=== PATIENT | male | born 1935 | race Caucasian/White ===

== ENCOUNTER 2021-05-08 16:38 | Inpatient (IN) | payer BC ==
[~2021-05-08] VITALS: Ht 177.8 cm; Wt 94.8 kg
--- NOTE | 2021-05-08 16:45 | NUR ---
BIB RA 38 FROM HOME C/O GENERALIZED WEAKNESS X3 DAYS, BS 194, PT DAUGHTER STATED THAT HE COMPLAINS OF CHEST AND ABDOMINAL PAIN AND NUMBNESS IN HIS R ARM. VITALS ARE WITHIN NORMAL LIMITS. PT ATTCHED TO MONITOR AND GIVEN WARM BLANKET FOR COMFORT. BREATHING IS EVEN AND UNLABORED ON ROOM AIR.
[2021-05-08] MEDS ORDERED: INSU100I26 SQ (17:35)
[2021-05-08] MEDS ORDERED: FINA5TAB11 PO (17:35)
[2021-05-08] MEDS ORDERED: BUME2TAB7 PO (17:35)
[2021-05-08] MEDS ORDERED: ASPI-1420 PO (17:35)
[2021-05-08] MEDS ORDERED: TAMS-12 PO (17:35)
[2021-05-08] MEDS ORDERED: SODI15OR6 PO (17:35)
[2021-05-08] MEDS ORDERED: SACU1TAB7 PO (17:35)
[2021-05-08] MEDS ORDERED: CARV3.122 PO (17:35)
[2021-05-08] MEDS ORDERED: ATOR40TA PO (17:35)
[2021-05-08] MEDS ORDERED: NITR0.4T48 SL (17:35)
--- NOTE | 2021-05-08 17:35 | NUR ---
AT BEDSIDE FOR EVAL.
--- NOTE | 2021-05-08 17:39 | NUR ---
IV LINE ESTABLISHED BLOOD DRAWN AND SENT TO LAB.
--- NOTE | 2021-05-08 17:58 | NUR ---
UNABLE TO PROVIDE URINE AT THIS TIME, URINAL PROVIDED AT BEDSIDE.
--- NOTE | 2021-05-08 17:58 | NUR ---
PT TAKEN TO CT VIA [facility]
[2021-05-08 18:22] LABS: BASOPHILS % (AUTO) 0.2 % (0.0-2.0); EOSINOPHILS % (AUTO) 0.9 % (0.0-6.0); HEMATOCRIT 37 % (39-51); HEMOGLOBIN 12.5 g/dL (13.5-17.5); LYMPHOCYTES # (AUTO) 1.2 K/uL (0.8-4.8); LYMPHOCYTES % (AUTO) 12.7 % (20.0-44.0); MEAN CORPUSCULAR HGB CONC 33 g/dl (31.0-36.0); MEAN CORPUSCULAR VOLUME 93 fL (80-96); MONOCYTES # (AUTO) 1.1 K/uL (0.1-1.30); NEUTROPHILS # (AUTO) 7.4 K/uL (1.8-8.9); NEUTROPHILS % (AUTO) 75.2 % (43.0-81.0); PLATELET COUNT (AUTO) 103 K/uL (150-450); RED BLOOD CELL COUNT(AUTO) 4.03 MIL/uL (4.5-6.0); WHITE BLOOD COUNT (AUTO) 9.8 K/uL (4.3-11.0)
[2021-05-08 18:33] LABS: LYMPHOCYTES % (MANUAL) 12 % (16-48); MONOCYTES % (MANUAL) 6 % (0-11.0); NEUTROPHILS % (MANUAL) 82 (42-76)
--- NOTE | 2021-05-08 18:38 | NUR ---
COVID TEST COLLECTED AND SENT
[2021-05-08 18:46] LABS: CALCIUM, SERUM 8.5 mg/dL (8.5-10.1); CARBON DIOXIDE 23 mmol/L (21-32); CHLORIDE 95 mmol/L (98-107); CREATININE 1.7 mg/dL (0.6-1.3); GLUCOSE 156 mg/dL (74-106); POTASSIUM 4.1 mmol/L (3.5-5.1); SODIUM SERUM 128 mmol/L (136-145); UREA NITROGEN, BLOOD 37 mg/dL (7-18)
--- NOTE | 2021-05-08 18:53 | NUR ---
ULTRASOUND AT BEDSIDE
[2021-05-08 18:59] LABS: ALANINE AMINOTRANSFERASE 23 U/L (12-78); ALBUMIN 2.5 g/dL (3.4-5.0); ALKALINE PHOSPHATASE 140 U/L (46-116); ASPARTATE AMINOTRANSFERASE 48 U/L (15-37); BILIRUBIN,DIRECT 2.4 mg/dL (0.0-0.2); BILIRUBIN,TOTAL 4.9 mg/dL (0.2-1.0); LIPASE 78 U/L (73-393); TOTAL PROTEIN, SERUM 6.8 g/dL (6.4-8.2)
[2021-05-08] MEDS ORDERED: ASPIRIN 81 MG TAB.CHEW ONE ×2 (19:29→23:44)
[2021-05-08] MEDS ORDERED: IV NS 0.9% 1,000 ML BAG IV ONE (19:30)
[2021-05-08] MEDS ORDERED: ASPIRIN 81 MG TAB.CHEW PO ONE (19:30)
--- NOTE | 2021-05-08 19:30 | NUR ---
urine collected and sent
--- NOTE | 2021-05-08 19:42 | NUR ---
OMID (DAUGHTER) [phone] WAITING IN WAITING ROOM
[2021-05-08 20:06] LABS: BILIRUBIN,URINE NEGATIVE (NEGATIVE); COLOR,URINE YELLOW (YELLOW); LEUKOCYTE ESTERASE ,URINE NEGATIVE (NEGATIVE); NITRITE, URINE NEGATIVE (NEGATIVE); PH,URINE 5.5 (5.0-8.0); PROTEIN,URINE TRACE mg/dl (NEGATIVE); UGLUCOSE NEGATIVE (NEGATIVE)
[2021-05-08 20:16] LABS: BACTERIA,URINE None seen /HPF (None Seen); WBC,URINE 0-2 /HPF (0-3)
[2021-05-08] MEDS ORDERED: ACETAMINOPHEN 325 MG TABLET PO PRN (20:30)
[2021-05-08] MEDS ORDERED: Z GUARD REMEDY 4 OZ OINT TP PRN (20:30)
[2021-05-08] MEDS ORDERED: ONDANSETRON HCL/PF 4 MG/2 ML VIAL IVP PRN (20:30)
[2021-05-08] MEDS ORDERED: NITROGLYCERIN 0.4 MG/TAB BOTTLE SL PRN (20:30)
[2021-05-08] MEDS ORDERED: MAG HYDROX/AL HYDROX/SIMETH 30 ML UDC PO PRN (20:30)
[2021-05-08] MEDS ORDERED: MAGNESIUM HYDROXIDE 30 ML UDC PO PRN (20:30)
--- NOTE | 2021-05-08 21:10 | NUR ---
DR ROSS ON THE PHONE WITH DR GREGORY FROM [facility]
--- NOTE | 2021-05-08 21:17 | NUR ---
ACCORDING TO DR ROSS, DR GREGORY APPROVED PT'S STAY AT [facility]
--- NOTE | 2021-05-08 21:20 | NUR ---
NEGATIVE DVT 15-20% PER RADIOLOGIST
[2021-05-08] MEDS: ASPIRIN EC 81 MG TABLET.DR PO SCH (23:00)
[2021-05-08] MEDS: ENOXAPARIN SODIUM 40 MG/0.4 ML DISP.SYRIN SQ SCH (23:00)
[2021-05-08] MEDS: ATORVASTATIN 40 MG TABLET PO SCH (23:00)
[2021-05-08] MEDS ORDERED: ATORVASTATIN 40 MG TABLET ONE (23:29)
[2021-05-08] MEDS: BLOOD SUGAR DIAGNOSTIC 1 EACH STRIP IN SCH ×2 (23:30)
[2021-05-08] MEDS ORDERED: ENOXAPARIN SODIUM 40 MG/0.4 ML DISP.SYRIN SQ ONE (23:40)
--- NOTE | 2021-05-09 04:44 | NUR ---
bed assignment: 327-1 after shift change
[2021-05-09 04:45] LABS: BASOPHILS % (AUTO) 0.4 % (0.0-2.0); EOSINOPHILS % (AUTO) 1.9 % (0.0-6.0); HEMATOCRIT 35 % (39-51); HEMOGLOBIN 11.8 g/dL (13.5-17.5); LYMPHOCYTES # (AUTO) 1.2 K/uL (0.8-4.8); LYMPHOCYTES % (AUTO) 15.5 % (20.0-44.0); MEAN CORPUSCULAR HGB CONC 34 g/dl (31.0-36.0); MEAN CORPUSCULAR VOLUME 91 fL (80-96); MONOCYTES # (AUTO) 0.9 K/uL (0.1-1.30); MONOCYTES % (AUTO) 12.7 % (2.0-12.0); NEUTROPHILS # (AUTO) 5.2 K/uL (1.8-8.9); NEUTROPHILS % (AUTO) 69.5 % (43.0-81.0); PLATELET COUNT (AUTO) 99 K/uL (150-450); RED BLOOD CELL COUNT(AUTO) 3.84 MIL/uL (4.5-6.0); WHITE BLOOD COUNT (AUTO) 7.5 K/uL (4.3-11.0)
[2021-05-09 05:04] LABS: CALCIUM, SERUM 8.1 mg/dL (8.5-10.1); CARBON DIOXIDE 25 mmol/L (21-32); CHLORIDE 99 mmol/L (98-107); CREATININE 1.6 mg/dL (0.6-1.3); GLUCOSE 100 mg/dL (74-106); MAGNESIUM 2.6 mg/dL (1.8-2.4); PHOSPHORUS 3.5 mg/dL (2.5-4.9); POTASSIUM 3.5 mmol/L (3.5-5.1); SODIUM SERUM 132 mmol/L (136-145); UREA NITROGEN, BLOOD 37 mg/dL (7-18)
[2021-05-09] MEDS: BLOOD SUGAR DIAGNOSTIC 1 EACH STRIP IN SCH ×6 (06:08→22:08)
--- NOTE | 2021-05-09 07:28 | NUR ---
REPORT GIVEN TO TANI BURNS FOR SAV
[2021-05-09] MEDS ORDERED: PANTOPRAZOLE 40 MG TABLET.DR PO ONE (07:56)
[2021-05-09 08:00] VITALS: BP 124/74
[2021-05-09] MEDS: PANTOPRAZOLE 40 MG TABLET.DR PO SCH (08:00)
[2021-05-09] MEDS: FINASTERIDE (5 MG) 5 MG TABLET PO SCH (09:00)
[2021-05-09] MEDS: CARVEDILOL 3.125 MG TABLET PO SCH ×2 (09:00→17:03)
[2021-05-09] MEDS: ASPIRIN EC 81 MG TABLET.DR PO SCH (09:00)
--- NOTE | 2021-05-09 09:00 | NUR ---
SHIP ENGINEER ADMISSION NOTE RECEIVED PATIENT VIA GURNEY. PATIENT ABLE TO AMBULATE WITH ASSISTANCE SAFELY TO BED X2 ASSIST. PATIENT IS A/O X4. PATIENT IS BREATHING EVENLY AND NONLABORED ON ROOM AIR. NO SIGNS OF DISTRESS, SOB NOTED. PATIENT PLACED ON TELE MONITOR SHOWS AFIB. VITALS BP 124/74, HR 80, RR 18, O2 SAT 100% AND TEMP 97.7. PATIENT HAS IV ACCESS TO R WRIST # 20GAUGE PATENT AND INTACT. PATIENTS SKIN C/D/I. PATIENTS ABDOMEN SOFT NONTENDER. PATIENT WAS ORIENTED TO THE ROOM AND HOW TO USE THE CALL LIGHT. ALL BELONGINGS ACCOUNTED FOR. SAFETY MEASURES IN PLACE BED ALARM ON BED LOW LOCKED AND CALL LIGHT WITHIN REACH. WILL CONTINUE TO MONITOR
[2021-05-09] MEDS: INSULIN REGULAR, HUMAN 100 UNIT/ML 3 ML VIAL SQ PRN ×2 (11:53→16:52)
[2021-05-09 12:00] VITALS: BP 125/70
[2021-05-09] MEDS ORDERED: DEXTROSE 50%-WATER 50 ML DISP.SYRIN IV PRN (12:00)
[2021-05-09] MEDS: IV NS 0.9% 1,000 ML IV PRN (12:13)
[2021-05-09 13:13] LABS: EOSINOPHILS % (MANUAL) 1 % (0-4); LYMPHOCYTES % (MANUAL) 18 % (16-48); MONOCYTES % (MANUAL) 7 % (0-11.0); NEUTROPHILS % (MANUAL) 74 (42-76)
--- NOTE | 2021-05-09 14:38 | NUR ---
RN NOTE SS EVALUATED PATIENT, STROKE DEPRESSION SCORE >5, SS ASKED TO ORDER PSYCH CONSULT.
--- NOTE | 2021-05-09 14:45 | NUR ---
SS Consult: SS Consult requested for rule out stroke. The pt. is a 85 year old male who is Fijian speaking mostly some Citizen Of [place]. The pt. is alert & oriented x 2. The pt.'s mood is depressed with flat affect. The pt. states he lives at home [[address] [facility] [address]; [phone]] with , Jennifer. The pt. stated his daughter, Corine Woody [phone] is his support system. Per pr. he ambulates with front wheel walker and his Jennifer helps him with some ADL's. Pt. denies SI/HI and denies hallucinations. Pt. stated he would like to return home when ready for discharge. ANGEL completed post stroke depressions scale with pt. and he scored a 6. ANGEL spoke with pt.'s nurse and ordered Psych consult. ANGEL placed Post Stroke Empowerment educational material in pt.'s chart. Paperwork to be give to pt./ family if it is determined that pt. has a Stroke. SS will be available as needed.
[2021-05-09 16:08] VITALS: BP 135/72
[2021-05-09] MEDS: ATORVASTATIN 40 MG TABLET PO SCH (17:03)
[2021-05-09] MEDS: INSULIN GLARGINE, 100 UNIT/ML CARTRIDGE SQ SCH (17:03)
[2021-05-09] MEDS: TAMSULOSIN 0.4 MG CAP.SR.24H PO SCH (17:03)
--- NOTE | 2021-05-09 18:21 | NUR ---
DOWELING MACHINE OPERATOR CLOSING NOTE PATIENT RESTING IN BED. PATIENT IS A/O X4. PATIENT IS BREATHING EVENLY AND NONLABORED ON ROOM AIR. NO SIGNS OF DISTRESS, SOB NOTED. PATIENT PLACED ON TELE MONITOR SHOWS AFIB. . PATIENT HAS IV ACCESS TO R WRIST # 20GAUGE PATENT AND INTACT RUNNING NS @ 60 ML/HR. PATIENTS SKIN C/D/I. ALL MEDICATIONS GIVEN ORDERED. SAFETY MEASURES IN PLACE BED ALARM ON BED LOW LOCKED AND CALL LIGHT WITHIN REACH. WILL ENDORSE TO ONCOMING SHIFT
[2021-05-09 18:27] LABS: ALANINE AMINOTRANSFERASE 23 U/L (12-78); ALBUMIN 2.6 g/dL (3.4-5.0); ALKALINE PHOSPHATASE 162 U/L (46-116); ASPARTATE AMINOTRANSFERASE 37 U/L (15-37); BILIRUBIN,DIRECT 3.1 mg/dL (0.0-0.2); BILIRUBIN,TOTAL 4.6 mg/dL (0.2-1.0); CALCIUM, SERUM 8.1 mg/dL (8.5-10.1); CARBON DIOXIDE 28 mmol/L (21-32); CHLORIDE 99 mmol/L (98-107); CREATININE 1.6 mg/dL (0.6-1.3); GLUCOSE 142 mg/dL (74-106); POTASSIUM 3.9 mmol/L (3.5-5.1); SODIUM SERUM 133 mmol/L (136-145); TOTAL PROTEIN, SERUM 6.9 g/dL (6.4-8.2); UREA NITROGEN, BLOOD 39 mg/dL (7-18)
--- NOTE | 2021-05-09 19:40 | NUR ---
MS/RN OPENING NOTE RECEIVED PATIENT RESTING IN BED. AWAKE, ALERT AND ORIENTED X 4. PRIMARILY MALAY SPEAKING. ABLE TO MAKE NEEDS KNOWN. DENIES PAIN AT THIS TIME. CONTINUES ON ROOM AIR WITH NO S/SX OF RESPIRATORY DISTRESS NOTED. IV ACCESS TO RIGHT WRIST #20G INTACT AND PATENT. CONTINUES ON IVF NS @ 60ML/HR. PATIENT TO BE NPO AFTER MIDNIGHT FOR HIDA SCAN IN AM. PATIENT AWARE AND AGREEABLE. CONSENT IN CHART. CALL LIGHT WITHIN REACH. ASPIRATION, FALL AND SAFETY PRECAUTIONS MAINTAINED. WILL CONTINUE TO MONITOR.
[2021-05-09] MEDS ORDERED: SODIUM POLYSTYRENE SULFONATE 15 G/60 ML BOTTLE PO SCH (20:30)
[2021-05-09 21:06] VITALS: BP 141/75
[2021-05-09] MEDS: ENOXAPARIN SODIUM 40 MG/0.4 ML DISP.SYRIN SQ SCH (21:52)
[2021-05-10] MEDS: IV NS 0.9% 1,000 ML IV PRN (02:38)
--- NOTE | 2021-05-10 06:10 | NUR ---
FIELD CROP FARMING SUPERVISOR NOTIFIED VIA TEXT IN REGARDS TO [facility].
--- NOTE | 2021-05-10 06:40 | NUR ---
MS/RN CLOSING NOTE PATIENT CURRENTLY RESTING IN BED. AWAKE, ALERT AND ORIENTED X 4. PRIMARILY PASHTO SPEAKING. ABLE TO MAKE NEEDS KNOWN. DENIES PAIN AT THIS TIME. CONTINUES ON ROOM AIR WITH NO S/SX OF RESPIRATORY DISTRESS NOTED. IV ACCESS TO RIGHT WRIST #20G INTACT AND PATENT. CONTINUES ON IVF NS @ 60ML/HR. PATIENT IS NPO FOR HIDA SCAN IN AM. CONSENT IN CHART. CALL LIGHT WITHIN REACH. ASPIRATION, FALL AND SAFETY PRECAUTIONS MAINTAINED. WILL ENDORSE PLAN OF CARE TO ONCOMING SHIFT.
[2021-05-10] MEDS: BLOOD SUGAR DIAGNOSTIC 1 EACH STRIP IN SCH ×4 (07:32→21:13)
[2021-05-10 07:55] LABS: BASOPHILS % (AUTO) 0.3 % (0.0-2.0); EOSINOPHILS % (AUTO) 4.6 % (0.0-6.0); HEMATOCRIT 37 % (39-51); HEMOGLOBIN 12.4 g/dL (13.5-17.5); LYMPHOCYTES # (AUTO) 1.1 K/uL (0.8-4.8); LYMPHOCYTES % (AUTO) 18.9 % (20.0-44.0); MEAN CORPUSCULAR HGB CONC 34 g/dl (31.0-36.0); MEAN CORPUSCULAR VOLUME 92 fL (80-96); MONOCYTES # (AUTO) 0.8 K/uL (0.1-1.30); MONOCYTES % (AUTO) 13.4 % (2.0-12.0); NEUTROPHILS # (AUTO) 3.6 K/uL (1.8-8.9); NEUTROPHILS % (AUTO) 62.8 % (43.0-81.0); PLATELET COUNT (AUTO) 113 K/uL (150-450); RED BLOOD CELL COUNT(AUTO) 4.02 MIL/uL (4.5-6.0); WHITE BLOOD COUNT (AUTO) 5.7 K/uL (4.3-11.0)
[2021-05-10 08:00] VITALS: BP 144/87
[2021-05-10 08:02] LABS: CALCIUM, SERUM 8.2 mg/dL (8.5-10.1); CREATININE 1.3 mg/dL (0.6-1.3); PHOSPHORUS 3.3 mg/dL (2.5-4.9); POTASSIUM 3.6 mmol/L (3.5-5.1)
--- NOTE | 2021-05-10 08:07 | NUR ---
MS/RN OPENING NOTE RECEIVED PATIENT RESTING IN BED. AWAKE, ALERT AND ORIENTED X 4. PRIMARILY BULGARIAN SPEAKING. ABLE TO MAKE NEEDS KNOWN. DENIES PAIN AT THIS TIME. CONTINUES ON ROOM AIR WITH NO S/SX OF RESPIRATORY DISTRESS NOTED. IV ACCESS TO RIGHT WRIST #20G INTACT AND PATENT WITH A RUNNING NS @60ML/HR. CONTINUES ON IVF NS @ 60ML/HR. PATIENT IS NPO FOR HIDA SCAN THIS MORNING. ALL CONSENTS SIGNED IN CHART. CALL LIGHT WITHIN REACH. ASPIRATION, FALL AND SAFETY PRECAUTIONS MAINTAINED. WILL CONTINUE TO MONITOR.
[2021-05-10] MEDS: FINASTERIDE (5 MG) 5 MG TABLET PO SCH (08:45)
[2021-05-10] MEDS: CARVEDILOL 3.125 MG TABLET PO SCH ×2 (08:45→17:04)
[2021-05-10] MEDS: ASPIRIN EC 81 MG TABLET.DR PO SCH (08:45)
[2021-05-10] MEDS: PANTOPRAZOLE 40 MG TABLET.DR PO SCH (08:45)
[2021-05-10 09:53] LABS: ALBUMIN 2.4 g/dL (3.4-5.0); BILIRUBIN,DIRECT 2.6 mg/dL (0.0-0.2); BILIRUBIN,TOTAL 4.3 mg/dL (0.2-1.0); TOTAL PROTEIN, SERUM 6.5 g/dL (6.4-8.2)
--- NOTE | 2021-05-10 11:45 | NUR ---
NM: JORGEA SCAN WAS COMPLETED: TECH:RB
[2021-05-10 16:00] VITALS: BP 130/71
[2021-05-10] MEDS: ATORVASTATIN 40 MG TABLET PO SCH (17:04)
[2021-05-10] MEDS: TAMSULOSIN 0.4 MG CAP.SR.24H PO SCH (17:04)
--- NOTE | 2021-05-10 18:30 | NUR ---
MS/RN NOTES- REFUSED INSULIN COVERAGE BS IS 200, 3 UNITS INSULIN REFUSED BY THE PATIENT. WILL MONITOR.
--- NOTE | 2021-05-10 19:35 | NUR ---
RN NOTES RECEIVED PATIENT SLEEPING BUT AROUSABLE, A/OX3, MACEDONIAN SPEAKING, DENIES PAIN, NO SOB, CALL LIGHT WITHIN REACH, [id number], WILL CONTINUE TO MONITOR
[2021-05-10] MEDS: BUMETANIDE (1 MG) 1 MG TABLET PO SCH (19:37)
[2021-05-10 20:00] VITALS: BP 119/62
[2021-05-10] MEDS: INSULIN GLARGINE, 100 UNIT/ML CARTRIDGE SQ SCH (20:03)
[2021-05-10] MEDS: ENOXAPARIN SODIUM 40 MG/0.4 ML DISP.SYRIN SQ SCH (20:58)
[2021-05-10] MEDS: INSULIN REGULAR, HUMAN 100 UNIT/ML 3 ML VIAL SQ PRN (21:12)
[2021-05-11] MEDS: BLOOD SUGAR DIAGNOSTIC 1 EACH STRIP IN SCH ×4 (06:42→22:20)
--- NOTE | 2021-05-11 07:28 | NUR ---
MS RN OPENING NOTES RECEIVED PATIENT AWAKE IN BED IN NO ACUTE SIGNS OF DISTRESS. ALERT AND ORIENTED X 4. PRIMARILY CYMRAES SPEAKING. ABLE TO MAKE NEEDS KNOWN, DENIES PAIN OR ANY DISCOMFORTS AT THIS TIME. ON ROOM AIR, BREATHING EVEN AND UNLABORED. IV ACCESS TO RIGHT WRIST #20G INTACT, PATENT AND SALINE LOCKED ONLY. SAFETY MEASURES IN PLACED: BED IN LOWEST LOCKED POSITION WITH SR-UP X2, CALL LIGHT WITHIN REACH. WILL CONTINUE TO MONITOR PT ACCORDINGLY.
[2021-05-11 08:00] VITALS: BP 128/65
[2021-05-11] MEDS: ASPIRIN EC 81 MG TABLET.DR PO SCH (08:17)
[2021-05-11] MEDS: FINASTERIDE (5 MG) 5 MG TABLET PO SCH (08:17)
[2021-05-11] MEDS: CARVEDILOL 3.125 MG TABLET PO SCH ×2 (08:18→17:00)
[2021-05-11] MEDS: PANTOPRAZOLE 40 MG TABLET.DR PO SCH (08:18)
[2021-05-11] MEDS: BUMETANIDE (1 MG) 1 MG TABLET PO SCH ×2 (08:19→17:09)
[2021-05-11 08:23] LABS: BASOPHILS % (AUTO) 0.3 % (0.0-2.0); EOSINOPHILS % (AUTO) 4.5 % (0.0-6.0); HEMATOCRIT 37 % (39-51); HEMOGLOBIN 12.2 g/dL (13.5-17.5); LYMPHOCYTES # (AUTO) 1.1 K/uL (0.8-4.8); LYMPHOCYTES % (AUTO) 20.2 % (20.0-44.0); MEAN CORPUSCULAR HGB CONC 33 g/dl (31.0-36.0); MEAN CORPUSCULAR VOLUME 92 fL (80-96); MONOCYTES # (AUTO) 0.8 K/uL (0.1-1.30); MONOCYTES % (AUTO) 15.9 % (2.0-12.0); NEUTROPHILS # (AUTO) 3.1 K/uL (1.8-8.9); NEUTROPHILS % (AUTO) 59.1 % (43.0-81.0); PLATELET COUNT (AUTO) 127 K/uL (150-450); RED BLOOD CELL COUNT(AUTO) 3.98 MIL/uL (4.5-6.0); WHITE BLOOD COUNT (AUTO) 5.3 K/uL (4.3-11.0)
[2021-05-11 08:42] LABS: ALBUMIN 2.5 g/dL (3.4-5.0); BILIRUBIN,TOTAL 3.1 mg/dL (0.2-1.0); CALCIUM, SERUM 7.8 mg/dL (8.5-10.1); CREATININE 1.3 mg/dL (0.6-1.3); MAGNESIUM 2.7 mg/dL (1.8-2.4); PHOSPHORUS 2.8 mg/dL (2.5-4.9); TOTAL PROTEIN, SERUM 6.2 g/dL (6.4-8.2)
--- NOTE | 2021-05-11 11:08 | NUR ---
RN NOTES VEGETABLE SORTER STATED THAT SHE CAN'T DO MRCP BECAUSE PT HAS PACEMAKER ON LCW. HERLINDA SILVA ON UNIT AND MADE AWARE.
[2021-05-11] MEDS: INSULIN REGULAR, HUMAN 100 UNIT/ML 3 ML VIAL SQ PRN ×3 (11:39→21:04)
[2021-05-11 13:01] LABS: BAND % (MANUAL) 2 % (0.0-5.0); BASOPHILS % (MANUAL) 0 % (0.0-2.0); BLASTS, MANUAL % 0 % (0-0); EOSINOPHILS % (MANUAL) 2 % (0-4); LYMPHOCYTES % (MANUAL) 26 % (16-48); METAMYELOCYTES % 0 % (0-0); MONOCYTES % (MANUAL) 4 % (0-11.0); MYELOCYTES % 0 % (0-0); NEUTROPHILS % (MANUAL) 66 (42-76); PROMYELOCYTES % 0 % (0-0); REACTIVE LYMPHOCYTES 0 % (0-0)
[2021-05-11 16:00] VITALS: BP 122/54
[2021-05-11] MEDS: TAMSULOSIN 0.4 MG CAP.SR.24H PO SCH (17:09)
[2021-05-11] MEDS: ATORVASTATIN 40 MG TABLET PO SCH (17:09)
[2021-05-11] MEDS: INSULIN GLARGINE, 100 UNIT/ML CARTRIDGE SQ SCH (17:14)
--- NOTE | 2021-05-11 18:40 | NUR ---
MS RN CLOSING NOTES PATIENT IN BED AWAKE AND RESTING AT MODERATE HIGH BACKREST POSITION. A/0 X 4. COMORAN SPEAKING, UNDERSTANDS MINIMAL URUGUAYAN. ON ROOM AIR, BREATHING EVEN AND UNLABORED. IV SALINE LOCKED ON RIGHT WRIST #20G INTACT, PATENT AND FLUSHES WELL. ALL NEEDS AND CARE ATTENDED WELL. SAFETY MEASURES IN PLACED: BED LOCKED AND IN LOWEST POSITION, SIDE-RAILS UP X2, CALL LIGHT AND TRAY TABLE WITHIN EASY REACH OF PT. WILL ENDORSE SAV TO CAUSTIC OPERATOR NURSE.
--- NOTE | 2021-05-11 19:30 | NUR ---
RN NOTES RECEIVED PATIENT AWAKE ON HIS BED, A/OX3, ITALIAN SPEAKING, DENIES PAIN, NO SOB, CALL LIGHT WITHIN REACH, [id number], WILL CONTINUE TO MONITOR
[2021-05-11 20:00] VITALS: BP 132/69
[2021-05-11] MEDS: ENOXAPARIN SODIUM 40 MG/0.4 ML DISP.SYRIN SQ SCH (20:57)
--- NOTE | 2021-05-12 06:00 | NUR ---
RN NOTES BLOOD SUGAR-58, PATIENT REFUSED D50 , PATIENT DRINKS JUICE AND JELLO, WILL MONITOR
--- NOTE | 2021-05-12 06:46 | NUR ---
RN NOTES RE-CHECKED PATIENT BLOOD SUGAR-110, MORNING CARE RENDERED, CALL LIGHT WITHIN REACH, [id number], PT. NEEDS ATTENDED
--- NOTE | 2021-05-12 07:20 | NUR ---
ms rn received on bed, awake,alert,oriented x3-4,not in any form of distress, respirations even and unlabored,no sob noted, lungs are clear,abdomen soft,positive bowel sounds,denies pain a this time,all needs attended.
[2021-05-12] MEDS: BLOOD SUGAR DIAGNOSTIC 1 EACH STRIP IN SCH ×2 (07:30→12:23)
[2021-05-12 08:00] VITALS: BP 131/72
--- NOTE | 2021-05-12 08:30 | NUR ---
ms barron breakfast served,due meds given,tolerated well.
[2021-05-12] MEDS: BUMETANIDE (1 MG) 1 MG TABLET PO SCH (08:32)
[2021-05-12] MEDS: FINASTERIDE (5 MG) 5 MG TABLET PO SCH (08:32)
[2021-05-12] MEDS: ASPIRIN EC 81 MG TABLET.DR PO SCH (08:32)
[2021-05-12 08:33] VITALS: BP 131/72
[2021-05-12] MEDS: CARVEDILOL 3.125 MG TABLET PO SCH (08:33)
[2021-05-12] MEDS: PANTOPRAZOLE 40 MG TABLET.DR PO SCH (08:34)
--- NOTE | 2021-05-12 10:30 | NUR ---
ms rn was seen by nathalia jones w/ order to go home today.
[2021-05-12 10:45] LABS: ALANINE AMINOTRANSFERASE 32 U/L (12-78); ALBUMIN 2.4 g/dL (3.4-5.0); ALKALINE PHOSPHATASE 166 U/L (46-116); ASPARTATE AMINOTRANSFERASE 47 U/L (15-37); BILIRUBIN,DIRECT 1.4 mg/dL (0.0-0.2); BILIRUBIN,TOTAL 2.3 mg/dL (0.2-1.0); CALCIUM, SERUM 8.1 mg/dL (8.5-10.1); CARBON DIOXIDE 25 mmol/L (21-32); CHLORIDE 104 mmol/L (98-107); CREATININE 1.4 mg/dL (0.6-1.3); GLUCOSE 143 mg/dL (74-106); POTASSIUM 3.5 mmol/L (3.5-5.1); SODIUM SERUM 137 mmol/L (136-145); TOTAL PROTEIN, SERUM 6.6 g/dL (6.4-8.2); UREA NITROGEN, BLOOD 27 mg/dL (7-18)
[2021-05-12] MEDS: INSULIN REGULAR, HUMAN 100 UNIT/ML 3 ML VIAL SQ PRN (12:26)
--- NOTE | 2021-05-12 15:10 | NUR ---
ms manufacturing engineering intern instructions given and understood, patient was excelsior picker by daughters,all needs attended.
== END 2021-05-12 15:10 | disposition home or self-care (01) | DRG 469 ==
LOC: ER 16:49 → TRANSITION 23:16 → TELE 05-09 05:12 → MED 05-09 20:28
PROVIDERS: ADMIT Nurse Practitioner Acute Care; ATTEND Nurse Practitioner Acute Care
DX: N17.0 Acute kidney failure with tubular necrosis (principal); E87.1 Hypo-osmolality and hyponatremia; I31.3 Pericardial effusion (noninflammatory); R18.8 Other ascites; I50.22 Chronic systolic (congestive) heart failure; E78.5 Hyperlipidemia, unspecified; I48.91 Unspecified atrial fibrillation; I25.10 Atherosclerotic heart disease of native coronary artery without angina pectoris; N40.0 Benign prostatic hyperplasia without lower urinary tract symptoms; K80.20 Calculus of gallbladder without cholecystitis without obstruction; Z20.822 Contact with and (suspected) exposure to COVID-19; Z79.4 Long term (current) use of insulin; Z79.82 Long term (current) use of aspirin; Z79.899 Other long term (current) drug therapy; I12.9 Hypertensive chronic kidney disease with stage 1 through stage 4 chronic kidney disease, or unspecified chronic kidney disease; N18.9 Chronic kidney disease, unspecified; R74.01 Elevation of levels of liver transaminase levels; Z95.810 Presence of automatic (implantable) cardiac defibrillator; Z95.5 Presence of coronary angioplasty implant and graft; K57.10 Diverticulosis of small intestine without perforation or abscess without bleeding; K74.60 Unspecified cirrhosis of liver; I44.7 Left bundle-branch block, unspecified; E11.22 Type 2 diabetes mellitus with diabetic chronic kidney disease
CPT/HCPCS: 36415; 70450-TC; 71045-TC; 76705-TC; 78226; 80048-TC; 80053-TC; 80076-TC; 81001; 82962-TC; 83690-TC; 83735-TC; 84100-TC; 84484-TC; 85025-TC; 85730-TC; 87081-TC; 92526; 92611-TC; 93307-TC; 93970-TC; 97116-TC; 97530-TC; A9537; C9803; G0378; J1650; J1815; J2405; J7030